=== PATIENT | male | born 1970 | race Caucasian/White ===

== ENCOUNTER → 2021-01-13 | Outpatient (CLI) | payer OTHER ==
[2021-01-13 12:09] LABS: URINE BLOOD 3+ (Negative); URINE CLARITY CLEAR; URINE COLOR YELLOW; URINE GLUCOSE-RANDOM* NEGATIVE (Negative); URINE KETONES 2+ (Negative); URINE LEUKOCYTES-REFLEX NEGATIVE (Negative); URINE NITRITE-REFLEX NEGATIVE (Negative); URINE PROTEIN (DIPSTICK) 2+ (Negative)
[2021-01-13 12:10] LABS: ICTOTEST (BILI CONFIRMATORY) Negative (Negative); URINE BILIRUBIN NEGATIVE (Negative)
[2021-01-13 12:17] LABS: EOSINOPHILS 0.3 % (0.0-3.0); HEMOGLOBIN 14.2 gm/dL (14.0-18.0); LYMPHOCYTES 24.2 % (24.0-44.0); MCH 33.4 pg (26.0-34.0); MCHC 33.9 g/dL (28.0-37.0); MCV 98.5 fL (80.0-100.0); MONOCYTES 9.3 % (1.0-8.0); PLATELET COUNT 181 thou/uL (150-400); POLYS 65.2 % (36.0-66.0); RBC 4.27 mil/uL (4.50-6.00); RDW 13.2 % (10.5-14.5); WBC 4.6 thou/uL (4.0-11.0)
[2021-01-13 12:25] LABS: BACTERIA-REFLEX 1-9 Few /HPF (None Seen); CASTS None Seen /LPF (None Seen); CRYSTALS None Seen /LPF (None Seen); SQUAMOUS None Seen /LPF (0-3); URINE RBC 3-10 Few /HPF (NONE SEEN); URINE WBC-REFLEX None Seen /HPF (0-5)
[2021-01-13 12:32] LABS: ALBUMIN 3.7 g/dL (3.4-5.0); ANION GAP 12 mmol/L (7-16); BUN 10 mg/dL (7-18); CALCIUM 9.2 mg/dL (8.5-10.1); CHLORIDE 101 mmol/L (98-107); CHOLESTEROL 205 mg/dL (<200); CO2 27 mmol/L (21-32); CREATININE 0.9 mg/dL (0.7-1.3); GLUCOSE 104 mg/dL (74-106); HDL CHOLESTEROL 136 mg/dL (>40); LDL CHOLESTEROL 59 mg/dL (<100); POTASSIUM 4.8 mmol/L (3.5-5.1); SGOT 91 U/L (15-37); SGPT 142 U/L (30-65); SODIUM 140 mmol/L (136-145); TC:HDL 1.5 Ratio (Not establshd); TOTAL BILIRUBIN 0.7 mg/dL (0.2-1.0); TOTAL PROTEIN 7.3 g/dL (6.4-8.2); TRIGLYCERIDE 51 mg/dL (<150); VLDL 10 mg/dL (<40)
== END ==
LOC: LAB 10:35
PROVIDERS: ATTEND Family Medicine
DX: Z00.00 Encounter for general adult medical examination without abnormal findings (principal)

== ENCOUNTER 2021-03-18 10:37 | Emergency (ER) | payer OTHER ==
[~2021-03-18] VITALS: Ht 175.3 cm; Wt 104.3 kg
[2021-03-18] MEDS ORDERED: ALLOPURINOL 10100 M1 PO (10:54)
[2021-03-18] MEDS ORDERED: CARVEDILOL6.25 M1 PO (10:54)
[2021-03-18] MEDS ORDERED: LOSARTAN POTAS100 MG PO (10:54)
[2021-03-18] MEDS ORDERED: PROTONIX40 M2 PO (10:55)
[2021-03-18 11:25] LABS: URINE BILIRUBIN NEGATIVE (Negative); URINE BLOOD 3+ (Negative); URINE CLARITY CLOUDY; URINE COLOR BROWN; URINE GLUCOSE-RANDOM* TRACE (Negative); URINE KETONES 1+ (Negative); URINE LEUKOCYTES-REFLEX 1+ (Negative); URINE NITRITE-REFLEX POSITIVE (Negative); URINE PROTEIN (DIPSTICK) 3+ (Negative)
[2021-03-18 11:31] LABS: ABSOLUTE NEUTROPHILS 7.1 thou/uL (1.4-8.2); BASOPHILS 0.4 % (0.0-2.0); EOSINOPHILS 0.1 % (0.0-3.0); HEMOGLOBIN 13.2 gm/dL (14.0-18.0); LYMPHOCYTES 7.8 % (24.0-44.0); MCH 33.6 pg (26.0-34.0); MCHC 34.7 g/dL (28.0-37.0); MCV 96.9 fL (80.0-100.0); MONOCYTES 14.7 % (1.0-8.0); PLATELET COUNT 195 thou/uL (150-400); RBC 3.92 mil/uL (4.50-6.00); RDW 12.5 % (10.5-14.5); WBC 9.2 thou/uL (4.0-11.0)
[2021-03-18 11:36] LABS: CRYSTALS None Seen /LPF (None Seen)
[2021-03-18 11:37] LABS: FINE GRANULAR CASTS 0-3 Few /LPF (None Seen); YEAST-REFLEX Present (None Seen)
[2021-03-18 11:38] LABS: SQUAMOUS None Seen /LPF (0-3); URINE WBC-REFLEX 0-5 Rare /HPF (0-5)
[2021-03-18 11:39] LABS: CALCIUM 8.4 mg/dL (8.5-10.1); CREATININE 1.1 mg/dL (0.7-1.3); POTASSIUM 3.8 mmol/L (3.5-5.1)
[2021-03-18 11:39] LABS: BACTERIA-REFLEX 1-9 Few /HPF (None Seen)
[2021-03-18 11:53] LABS: TOTAL BILIRUBIN 1.1 mg/dL (0.2-1.0); TOTAL PROTEIN 6.4 g/dL (6.4-8.2)
[2021-03-18] MEDS ORDERED: CEPHALEXIN500 MG PO (12:28)
[2021-03-18] MEDS ORDERED: DIFLUCAN150 MG PO (12:28)
[2021-03-18] MEDS ORDERED: TESSALON PERLE100 MG PO (12:28)
[2021-03-18 12:32] VITALS: BP 139/83
--- NOTE | 2021-03-18 13:51 | EKG ---
[place] [address] [facility] [employer] [place] [address] ELECTROCARDIOGRAM REPORT Name: MUKESH HARE Room #: DEP JOSE Horton#: [id number] Admission: 03/18/21 Attend Phys: Discharge: 03/18/21 Date of : 68 Report #: [id number] [facility] ED Test Date: 2021-03-18 Test Time: 11:27:32 Pat Name: MUKESH HARE Department: Room: Gender: M Cctv Technician: COURTNEY : 1970 Requested By: Ramses Alston Order Number: [id number] MD: Raoul Ho Measurements Intervals [place] Rate: 91 P: 34 NV: 188 QRS: 24 QRSD: 97 T: 17 QT: 340 QTc: 419 Interpretive Statements Sinus rhythm Abnormal R-wave progression, late transition No previous ECG available for comparison Electronically Signed On 03-18-2021 13:50:52 CDT by Raoul Ho [email or web address] <ELECTRONICALLY SIGNED> By: Raoul Ho MD, [facility] 03/18/21 1350 [id number] Raoul Ho MD, FACC /EPI
== END 2021-03-18 12:32 | disposition home or self-care (01) ==
LOC: ER 10:37
PROVIDERS: Nurse Practitioner
DX: B37.41 Candidal cystitis and urethritis (principal); R31.9 Hematuria, unspecified; Z20.822 Contact with and (suspected) exposure to COVID-19; I12.9 Hypertensive chronic kidney disease with stage 1 through stage 4 chronic kidney disease, or unspecified chronic kidney disease; N18.2 Chronic kidney disease, stage 2 (mild); Z79.899 Other long term (current) drug therapy

== ENCOUNTER → 2021-03-26 | Outpatient (CLI) | payer OTHER ==
[~2021-03-26] MED LIST: ALLOPURINOL 10100 M1 PO; CARVEDILOL6.25 M1 PO; CEPHALEXIN500 MG PO; DIFLUCAN150 MG PO; LOSARTAN POTAS100 MG PO; PROTONIX40 M2 PO; TESSALON PERLE100 MG PO
[2021-03-26 11:22] LABS: URINE BILIRUBIN NEGATIVE (Negative); URINE BLOOD 3+ (Negative); URINE CLARITY CLEAR; URINE COLOR YELLOW; URINE GLUCOSE-RANDOM* NEGATIVE (Negative); URINE KETONES NEGATIVE (Negative); URINE LEUKOCYTES-REFLEX NEGATIVE (Negative); URINE NITRITE-REFLEX NEGATIVE (Negative); URINE PROTEIN (DIPSTICK) 2+ (Negative); URINE UROBILINOGEN 0.2 E.U./dl (0.2-1.0)
[2021-03-26 11:34] LABS: BACTERIA-REFLEX 1-9 Few /HPF (None Seen); CRYSTALS None Seen /LPF (None Seen); FINE GRANULAR CASTS 0-3 Few /LPF (None Seen); SQUAMOUS 0-3 Few /LPF (0-3); URINE RBC >20 Many /HPF (NONE SEEN); URINE WBC-REFLEX 0-5 Rare /HPF (0-5)
== END ==
LOC: LAB 10:15
PROVIDERS: ATTEND Family Medicine
DX: R30.0 Dysuria (principal)

== ENCOUNTER → 2021-04-02 | Outpatient (CLI) | payer OTHER ==
[2021-04-02 09:51] LABS: URINE BILIRUBIN NEGATIVE (Negative); URINE BLOOD 3+ (Negative); URINE CLARITY CLEAR; URINE COLOR YELLOW; URINE GLUCOSE-RANDOM* NEGATIVE (Negative); URINE KETONES NEGATIVE (Negative); URINE LEUKOCYTES-REFLEX NEGATIVE (Negative); URINE NITRITE-REFLEX NEGATIVE (Negative); URINE PROTEIN (DIPSTICK) 2+ (Negative); URINE UROBILINOGEN 0.2 E.U./dl (0.2-1.0)
[2021-04-02 10:31] LABS: SQUAMOUS 0-3 Few /LPF (0-3)
[2021-04-02 10:32] LABS: CASTS None Seen /LPF (None Seen)
[2021-04-02 10:33] LABS: URINE RBC 3-10 Few /HPF (NONE SEEN); URINE WBC-REFLEX 0-5 Rare /HPF (0-5)
[2021-04-02 10:34] LABS: BACTERIA-REFLEX 1-9 Few /HPF (None Seen); CRYSTALS None Seen /LPF (None Seen)
== END ==
LOC: LAB 08:23 → ULTRA 08:23
PROVIDERS: ATTEND Family Medicine
DX: K76.0 Fatty (change of) liver, not elsewhere classified (principal); R79.89 Other specified abnormal findings of blood chemistry; R30.0 Dysuria

== ENCOUNTER → 2021-05-01 | Outpatient (CLI) | payer OTHER ==
[2021-05-01 16:33] LABS: URINE BILIRUBIN NEGATIVE (Negative); URINE BLOOD 3+ (Negative); URINE CLARITY CLEAR; URINE COLOR YELLOW; URINE GLUCOSE-RANDOM* NEGATIVE (Negative); URINE KETONES NEGATIVE (Negative); URINE LEUKOCYTES-REFLEX NEGATIVE (Negative); URINE NITRITE-REFLEX NEGATIVE (Negative); URINE PROTEIN (DIPSTICK) TRACE (Negative); URINE SPECIFIC GRAVITY <= 1.005 (1.005-1.035); URINE UROBILINOGEN 0.2 E.U./dl (0.2-1.0)
[2021-05-01 16:42] LABS: ALBUMIN 3.4 g/dL (3.4-5.0); CALCIUM 8.8 mg/dL (8.5-10.1); CREATININE 1.1 mg/dL (0.7-1.3); PHOSPHORUS 3.7 mg/dL (2.5-4.9); POTASSIUM 3.6 mmol/L (3.5-5.1)
[2021-05-01 16:47] LABS: PROT/CREAT RATIO 0.4; URINE CREATININE-RANDOM* 57.5 mg/dL; URINE PROTEIN-RANDOM* 22.8 mg/dL (<11.9)
[2021-05-01 17:40] LABS: SQUAMOUS 0-3 Few /LPF (0-3); URINE WBC-REFLEX 0-5 Rare /HPF (0-5)
[2021-05-01 17:41] LABS: BACTERIA-REFLEX 1-9 Few /HPF (None Seen)
[2021-05-02 01:06] LABS: GLYCOHEMOGLOBIN (HGB A1C) 5.8 % (4.8-5.6)
== END ==
LOC: LAB 15:18
PROVIDERS: ATTEND Hospitalist
DX: I10 Essential (primary) hypertension (principal); N02.8 Recurrent and persistent hematuria with other morphologic changes; E74.39 Other disorders of intestinal carbohydrate absorption

== ENCOUNTER → 2021-05-23 | Outpatient (CLI) | payer OTHER | LOC: CAT 07:48 | PROVIDERS: ATTEND Urology | DX: R31.29 Other microscopic hematuria (principal); K80.20 Calculus of gallbladder without cholecystitis without obstruction ==